=== PATIENT | male | born 1940 | race Caucasian/White ===

== ENCOUNTER → 2020-09-30 | Outpatient (CLI) | payer MEDICARE ==
[~2020-09-30] MED LIST: CLEO300C2 PO; DOCU5LIQ PO; FISH1000 PO; GLUC1CAP9 PO; IBUP200C PO; IBUPOTC PO; MULTTAB37 PO; PERC7.5T12 PO; VITA100066 PO; VITA200019 PO; VITA500C PO; VITA500C24 PO; [UNRECOGNIZED DRUG - OTHER] PO
[2020-09-30 09:28] LABS: BASO % 0.8 % (0.0-1.0); EOS # 0.1 10^3/uL (0.0-0.5); EOS % 1.6 % (0.0-3.0); HEMATOCRIT 42.9 % (42.0-52.0); HEMOGLOBIN 13.7 g/dl (13.5-17.5); LYMPH # 0.7 10^3/uL (1.5-5.0); LYMPH % 14.5 % (24.0-44.0); MEAN CORPUSCULAR HEMOGLOBIN 30.5 pg (27.0-33.0); MEAN CORPUSCULAR HGB CONC 31.9 g/dl (32.0-36.5); MEAN CORPUSCULAR VOLUME 95.5 fl (80.0-96.0); MONO # 0.3 10^3/uL (0.0-0.8); MONO % 6.9 % (2.0-8.0); NEUTROPHILS # 3.7 10^3/uL (1.5-8.5); NEUTROPHILS % 75.8 % (36.0-66.0); RED BLOOD COUNT 4.49 10^6/uL (4.30-6.10); WHITE BLOOD COUNT 4.9 10^3/uL (4.0-10.0)
[2020-09-30 09:36] LABS: INR 1.17; PROTHROMBIN TIME 15.1 SECONDS (12.5-14.3)
[2020-09-30 09:37] LABS: PARTIAL THROMBOPLASTIN TIME 30.1 SECONDS (24.2-38.5)
[2020-09-30 09:45] LABS: PLATELET COUNT, AUTOMATED 89 10^3/uL (150-450)
[2020-09-30 10:12] LABS: ALBUMIN 3.7 GM/DL (3.2-5.2); BILIRUBIN,TOTAL 1.3 MG/DL (0.2-1.0); CALCIUM LEVEL 9.1 MG/DL (8.8-10.2); CHOLESTEROL RISK RATIO 2.674 (<5); CREATININE FOR GFR 1.32 MG/DL (0.70-1.30); GLOMERULAR FILTRATION RATE 55.3 (>35); POTASSIUM SERUM 4.6 MEQ/L (3.5-5.1); TOTAL PROTEIN 6.4 GM/DL (6.4-8.2); TROPONIN I 0.04 NG/ML (< 0.10)
[2020-09-30 17:50] LABS: HEMOGLOBIN A1c 5.7 %
== END ==
LOC: M LAB 08:55
PROVIDERS: ATTEND Physician Assistant
DX: I48.91 Unspecified atrial fibrillation (principal); Z13.220 Encounter for screening for lipoid disorders; Z12.5 Encounter for screening for malignant neoplasm of prostate; R73.01 Impaired fasting glucose; E78.00 Pure hypercholesterolemia, unspecified
CPT/HCPCS: 36415; 80053; 80061; 83036; 83880; 84484; 85025; 85049; 85055; 85610; 85730; G0103

== ENCOUNTER → 2020-10-22 | Outpatient (CLI) | payer MEDICARE ==
--- NOTE | 2020-10-25 08:25 | ECHO ---
DATE OF PROCEDURE: 10/22/2020 Age: 80 Gender: Male Height: 175 cm Weight: 81 kg REFERRING PHYSICIAN: Camden Stokes PA-C INDICATION: Atrial fibrillation. MEASUREMENTS: 2D Measurements: Intraventricular septum 3.7 cm Posterior wall 2.3 cm Intraventricular septum 1.42 cm Posterior wall 1.38 cm Aortic root 3.3 cm Left atrium 4.1 cm LVOT 2.1 cm Proximal ascending aorta 3.3 cm Inferior vena cava 2.3 cm (more than 50% respiratory variation). Doppler Measurements: No aortic stenosis No aortic regurgitation LVOT velocity 72.1 cm/s Moderate mitral regurgitation No mitral stenosis No tricuspid regurgitation Mild pulmonic regurgitation DESCRIPTION: Rhythm was atrial fibrillation with rapid ventricular response. This was a moderately technically difficult echocardiogram. No pericardial effusion. This was a 2D, M-mode, color flow Doppler, and pulsed wave Doppler examination. CONCLUSIONS: 1. Mild concentric left ventricular hypertrophy. Normal regional LV wall motion and wall thickening. Normal LV systolic function. LVEF 70% by visual estimate. 2. Structurally normal appearing mitral leaflets. No broken chordae or flailed segments. No mitral valve prolapse. Moderate mitral regurgitation. 3. Mild left atrial dilatation. 4. Mild aortic valve sclerosis of a 3-cuspid aortic valve. No aortic regurgitation. 5. False tendon at the mid left ventricle level (normal variant). 6. Moderately technically difficult echocardiogram. 7. Otherwise normal appearing echocardiogram Doppler findings. Etiology of this patients moderate mitral regurgitation was not evident on this study. If clinically important, further evaluation with transesophageal echocardiogram could better define the potential etiology of the patients mitral regurgitation. JESSI
== END ==
LOC: M CARPUL 08:18
PROVIDERS: ATTEND Physician Assistant
DX: I48.91 Unspecified atrial fibrillation (principal)

== ENCOUNTER 2020-11-18 16:20 | Emergency (ER) | payer MEDICARE ==
[~2020-11-18] VITALS: Ht 175.3 cm; Wt 76.8 kg
[2020-11-18] MEDS ORDERED: CLOP75TA2 (16:38)
[2020-11-18] MEDS ORDERED: ENAL10TA10 (16:38)
[2020-11-18 17:07] LABS: BASO # 0.1 10^3/uL (0.0-0.2); BASO % 0.9 % (0.0-1.0); EOS # 0.1 10^3/uL (0.0-0.5); EOS % 2.1 % (0.0-3.0); HEMATOCRIT 46.7 % (42.0-52.0); HEMOGLOBIN 15.6 g/dl (13.5-17.5); LYMPH # 1.1 10^3/uL (1.5-5.0); LYMPH % 19.9 % (24.0-44.0); MEAN CORPUSCULAR HEMOGLOBIN 30.3 pg (27.0-33.0); MEAN CORPUSCULAR HGB CONC 33.4 g/dl (32.0-36.5); MEAN CORPUSCULAR VOLUME 90.7 fl (80.0-96.0); MONO # 0.4 10^3/uL (0.0-0.8); MONO % 7.7 % (2.0-8.0); NEUTROPHILS # 3.7 10^3/uL (1.5-8.5); NEUTROPHILS % 69.2 % (36.0-66.0); PLATELET COUNT, AUTOMATED 117 10^3/uL (150-450); RED BLOOD COUNT 5.15 10^6/uL (4.30-6.10); WHITE BLOOD COUNT 5.3 10^3/uL (4.0-10.0)
[2020-11-18] MEDS ORDERED: HYDR-3713 PO (17:12)
--- NOTE | 2020-11-18 17:25 | REP ---
INDICATION: CHEST PAIN COMPARISON: None. TECHNIQUE: Portable AP view of the chest FINDINGS: The mediastinum and cardiac silhouette are within normal limits for portable technique. The lung [place] are clear without acute consolidation, effusion, or pneumothorax. Skeletal structures are intact. IMPRESSION: No acute cardiopulmonary process appreciated. <Electronically signed by Cy Salas > 11/18/20 [id number]
[2020-11-18 17:43] LABS: ALBUMIN 4.2 GM/DL (3.2-5.2); BILIRUBIN,DIRECT 0.3 MG/DL (0.0-0.2); BILIRUBIN,TOTAL 0.9 MG/DL (0.2-1.0); CALCIUM LEVEL 9.2 MG/DL (8.8-10.2); CK-MB VALUE MASS 3.2 NG/ML (<3.6); CREATININE FOR GFR 1.36 MG/DL (0.70-1.30); GLOMERULAR FILTRATION RATE 53.4 (>35); MB/CK RELATIVE INDEX 3.3 (< OR =4); POTASSIUM SERUM 4.4 MEQ/L (3.5-5.1); THYROID STIMULATING HORMONE 2.48 uIU/ML (0.358-3.740); TOTAL PROTEIN 7.3 GM/DL (6.4-8.2); TROPONIN I 0.05 NG/ML (< 0.10)
[2020-11-18 18:40] VITALS: BP 126/94
[2020-11-18] MEDS ORDERED: WARF-20 PO (18:41)
[2020-11-18] MEDS ORDERED: METO25TA4 PO (18:42)
--- NOTE | 2020-11-18 20:11 | ECGEPIP ---
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
--- NOTE | 2020-11-18 20:19 | ECGEPIP ---
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
== END 2020-11-18 19:04 | disposition home or self-care (01) ==
LOC: M ED 16:20
DX: I48.91 Unspecified atrial fibrillation (principal); E78.5 Hyperlipidemia, unspecified; Z79.899 Other long term (current) drug therapy

== ENCOUNTER → 2021-12-30 | Outpatient (CLI) | payer MEDICARE ==
[~2021-12-30] MED LIST changes: +CLOP75TA2; +ENAL10TA10; +HYDR-3713 PO; +METO25TA4 PO; +WARF-20 PO
[2021-12-30 12:27] LABS: BASO # 0.1 10^3/uL (0.0-0.2); BASO % 1.1 % (0.0-1.0); EOS # 0.2 10^3/uL (0.0-0.5); EOS % 3.5 % (0.0-3.0); HEMATOCRIT 47.6 % (42.0-52.0); HEMOGLOBIN 15.5 g/dl (13.5-17.5); LYMPH # 1.1 10^3/uL (1.5-5.0); LYMPH % 20.6 % (24.0-44.0); MEAN CORPUSCULAR HEMOGLOBIN 31.3 pg (27.0-33.0); MEAN CORPUSCULAR HGB CONC 32.6 g/dl (32.0-36.5); MEAN CORPUSCULAR VOLUME 96.2 fl (80.0-96.0); MONO # 0.4 10^3/uL (0.0-0.8); MONO % 7.2 % (2.0-8.0); NEUTROPHILS # 3.6 10^3/uL (1.5-8.5); NEUTROPHILS % 67.4 % (36.0-66.0); PLATELET COUNT, AUTOMATED 120 10^3/uL (150-450); RED BLOOD COUNT 4.95 10^6/uL (4.30-6.10); WHITE BLOOD COUNT 5.4 10^3/uL (4.0-10.0)
[2021-12-30 12:50] LABS: ALBUMIN 4.1 GM/DL (3.2-5.2); CALCIUM LEVEL 9.2 MG/DL (8.8-10.2); CREATININE FOR GFR 1.49 MG/DL (0.70-1.30); GLOMERULAR FILTRATION RATE 47.9 (>35); PHOSPHORUS LEVEL 3.4 MG/DL (2.5-4.9); POTASSIUM SERUM 4.7 MEQ/L (3.5-5.1)
== END ==
LOC: M WUC 08:52
PROVIDERS: ATTEND Internal Medicine Cardiovascular Disease
DX: I50.32 Chronic diastolic (congestive) heart failure (principal); I34.0 Nonrheumatic mitral (valve) insufficiency; I48.19 Other persistent atrial fibrillation

== ENCOUNTER → 2024-06-27 | Outpatient (CLI) | payer MEDICARE | LOC: M EKG 13:36 | PROVIDERS: ATTEND Internal Medicine Cardiovascular Disease | DX: I48.91 Unspecified atrial fibrillation (principal); I49.3 Ventricular premature depolarization ==

== ENCOUNTER → 2024-08-13 | Outpatient (CLI) | payer MEDICARE | LOC: M CARPUL 16:00 | PROVIDERS: ATTEND Internal Medicine Cardiovascular Disease | DX: I34.0 Nonrheumatic mitral (valve) insufficiency (principal); I50.32 Chronic diastolic (congestive) heart failure; I49.3 Ventricular premature depolarization ==